=== PATIENT | female | born 1980 | race Caucasian/White ===

== ENCOUNTER 2020-10-27 08:57 | Outpatient (CLI) | payer MEDICAID ==
[~2020-10-27] VITALS: Ht 165.1 cm; Wt 98.1 kg
== END 2020-10-27 09:25 | disposition home or self-care (01) ==
LOC: LDOP 08:57
PROVIDERS: ATTEND Obstetrics & Gynecology
DX: O09.523 Supervision of elderly multigravida, third trimester (principal); Z3A.37 37 weeks gestation of pregnancy
CPT/HCPCS: 59025

== ENCOUNTER 2020-11-08 11:08 | Outpatient (CLI) | payer MEDICAID ==
[~2020-11-08] VITALS: Ht 165.1 cm; Wt 98.0 kg
== END 2020-11-08 12:38 | disposition home or self-care (01) ==
LOC: LDOP 11:08
PROVIDERS: ATTEND Obstetrics & Gynecology
DX: O09.93 Supervision of high risk pregnancy, unspecified, third trimester (principal); Z3A.39 39 weeks gestation of pregnancy
CPT/HCPCS: 59025; 76819

== ENCOUNTER 2020-11-10 05:33 | Inpatient (IN) | payer MEDICAID ==
[~2020-11-10] VITALS: Ht 165.1 cm; Wt 98.2 kg
[2020-11-10] MEDS ORDERED: NEWBORN KIT ONE (05:42)
[2020-11-10] MEDS ORDERED: SODIUM CITRATE/CITRIC ACID 15 ML UDC ONE (05:42)
[2020-11-10] MEDS ORDERED: METOCLOPRAMIDE 5 MG/ML, 2ML ONE (05:42)
[2020-11-10 05:54] VITALS: BP 123/87
[2020-11-10] MEDS ORDERED: ONDANSETRON 2MG/ML, 2ML IVPush ONE (06:00)
[2020-11-10] MEDS ORDERED: LACTATED RINGERS 1,000 ML IVBOLUS ONE (06:00)
[2020-11-10] MEDS ORDERED: CEFAZOLIN PMX 1GM/50ML 50 ML IVPB ONE (06:00)
[2020-11-10] MEDS ORDERED: METOCLOPRAMIDE 5 MG/ML, 2ML IV ONE (06:00)
[2020-11-10] MEDS ORDERED: SODIUM CITRATE/CITRIC ACID 30 ML UDC PO ONE (06:00)
[2020-11-10 06:24] LABS: BASOPHILS % (AUTO) 0 % (0-1); EOSINOPHILS % (AUTO) 1 % (1-7); LYMPHOCYTES % (AUTO) 19 % (22-44); MEAN CORPUSCULAR HEMOGLOBIN 27.8 pg (27.0-34.8); MEAN PLATELET VOLUME 10.4 fL (7.4-10.4); MONOCYTES % (AUTO) 7 % (2-9); NEUTROPHILS % (AUTO) 73 % (42-75); PLATELET COUNT 221 x10^3/uL (130-400); RED BLOOD COUNT 3.58 x10^6/uL (3.82-5.3); RED CELL DISTRIBUTION WIDTH 15.8 % (9.6-15.2)
[2020-11-10] MEDS: LACTATED RINGERS 1,000 ML IV SCH ×7 (06:30→21:30)
[2020-11-10] MEDS ORDERED: CEFAZOLIN 1,000 MG ONE (07:17)
[2020-11-10] MEDS ORDERED: PHENYLEPHRINE 10 MG/ML ONE (07:17)
[2020-11-10] MEDS ORDERED: DEXAMETHASONE 4 MG/ML, 1ML ONE (07:17)
[2020-11-10] MEDS ORDERED: OXYTOCIN 10 UNITS/ML, 1ML ONE (07:17)
[2020-11-10] MEDS ORDERED: KETOROLAC 30 MG/1 ML ONE (07:17)
[2020-11-10] MEDS ORDERED: EPHEDRINE 50 MG/ML, 1ML ONE (07:17)
[2020-11-10] MEDS ORDERED: ONDANSETRON 2MG/ML, 2ML ONE (07:17)
[2020-11-10] MEDS ORDERED: EPHEDRINE 50 MG/ML, 1ML IVPush PRN (07:30)
[2020-11-10] MEDS ORDERED: ONDANSETRON 2MG/ML, 2ML IVPush PRN (07:30)
[2020-11-10] MEDS ORDERED: MEPERIDINE/PF 25MG/0.5ML IVPush PRN (07:30)
[2020-11-10] MEDS ORDERED: OXYcodone 5 MG/5 ML ORAL.SOL UDC PO PRN (07:30)
[2020-11-10] MEDS ORDERED: METOPROLOL 1 MG/ML, 5ML IV PRN (07:30)
[2020-11-10] MEDS ORDERED: PROMETHAZINE 25 MG/ML, 1ML IV PRN (07:30)
[2020-11-10] MEDS ORDERED: ALBUTEROL SULFATE 2.5 MG/3 ML NPPB PRN (07:30)
[2020-11-10] MEDS ORDERED: FENTANYL PF 100 MCG/2ML IV PRN (07:30)
[2020-11-10] MEDS ORDERED: LABETALOL 5MG/ML, 20ML IV PRN (07:30)
[2020-11-10] MEDS ORDERED: hydrALAzine 20 MG/ML, 1ML IV PRN (07:30)
[2020-11-10] MEDS ORDERED: HYDROcodone/APAP 7.5-325MG/15ML UDC PO PRN (07:30)
[2020-11-10] MEDS ORDERED: MIDAZOLAM 1 MG/ML, 2ML IV PRN (07:30)
[2020-11-10] MEDS ORDERED: HYDROmorphone 2 MG/ML, 1ML IVPush PRN (07:30)
[2020-11-10] MEDS ORDERED: HYDROmorphone 2 MG/ML, 1ML ONE (07:40)
[2020-11-10] MEDS ORDERED: FENTANYL PF 100 MCG/2ML ONE (07:40)
[2020-11-10] MEDS ORDERED: MIDAZOLAM 1 MG/ML, 2ML ONE (07:40)
[2020-11-10] MEDS ORDERED: OXYTOCIN 30U/ 0.9% NaCL 500ML 500 ML ONE (10:54)
[2020-11-10] MEDS: OXYTOCIN 30U/ 0.9% NaCL 500ML 500 ML IV SCH ×2 (11:30→21:30)
[2020-11-10] MEDS ORDERED: MISOPROSTOL 200 MCG TABLET PR PRN (11:30)
[2020-11-10] MEDS: morphine SULFATE 10 MG/ML, 1ML IVPush PRN ×2 (12:15→13:05)
[2020-11-10 13:45] VITALS: BP 130/88
[2020-11-10] MEDS: KETOROLAC 30 MG/1 ML IV SCH ×2 (14:57→21:09)
[2020-11-10] MEDS: OXYcodone/APAP 5/325MG TABLET PO PRN ×2 (16:41→21:10)
[2020-11-10 17:30] VITALS: BP 132/78
[2020-11-10 19:30] VITALS: BP 135/78
[2020-11-10] MEDS: DOCUSATE 100 MG CAPSULE PO PRN (21:09)
[2020-11-10 23:50] VITALS: BP 119/74
[2020-11-11 01:08] LABS: BASOPHILS % (AUTO) 0 % (0-1); EOSINOPHILS % (AUTO) 0 % (1-7); LYMPHOCYTES % (AUTO) 12 % (22-44); MEAN CORPUSCULAR HEMOGLOBIN 27.4 pg (27.0-34.8); MEAN CORPUSCULAR HGB CONC 33.4 g/dL (32.4-35.8); MEAN PLATELET VOLUME 10.7 fL (7.4-10.4); MONOCYTES % (AUTO) 6 % (2-9); NEUTROPHILS % (AUTO) 82 % (42-75); PLATELET COUNT 234 x10^3/uL (130-400); RED BLOOD COUNT 3.18 x10^6/uL (3.82-5.3); RED CELL DISTRIBUTION WIDTH 15.9 % (9.6-15.2)
[2020-11-11] MEDS: OXYcodone/APAP 5/325MG TABLET PO PRN ×5 (02:09→21:01)
[2020-11-11] MEDS: KETOROLAC 30 MG/1 ML IV SCH ×4 (03:04→21:01)
[2020-11-11] MEDS: LACTATED RINGERS 1,000 ML IV SCH ×8 (03:30→22:00)
[2020-11-11 04:00] VITALS: BP 123/73
[2020-11-11] MEDS: OXYTOCIN 30U/ 0.9% NaCL 500ML 500 ML IV SCH ×2 (07:30→17:30)
[2020-11-11 07:41] VITALS: BP 107/70
[2020-11-11] MEDS: SIMETHICONE 80 MG CHEW TAB PO PRN ×2 (07:47→16:30)
[2020-11-11] MEDS: DOCUSATE 100 MG CAPSULE PO PRN ×2 (07:47→21:01)
[2020-11-11] MEDS: PRENATAL VIT/IRON/FA 1 EACH TABLET PO SCH (07:47)
[2020-11-11 21:00] VITALS: BP 142/82
[2020-11-11 22:00] VITALS: BP 129/80
[2020-11-12] MEDS: OXYcodone/APAP 5/325MG TABLET PO PRN ×4 (01:23→17:06)
[2020-11-12] MEDS: KETOROLAC 30 MG/1 ML IV SCH ×2 (03:00→09:48)
[2020-11-12] MEDS: OXYTOCIN 30U/ 0.9% NaCL 500ML 500 ML IV SCH (03:30)
[2020-11-12] MEDS: LACTATED RINGERS 1,000 ML IV SCH ×3 (03:30→06:00)
[2020-11-12 08:00] VITALS: BP 120/72
[2020-11-12] MEDS: PRENATAL VIT/IRON/FA 1 EACH TABLET PO SCH (08:05)
[2020-11-12] MEDS: DOCUSATE 100 MG CAPSULE PO PRN (08:05)
[2020-11-12] MEDS ORDERED: IBUPROFEN 600 MG TABLET PO PRN (11:30)
[2020-11-12] MEDS ORDERED: OXYC1TAB14 PO (12:43)
[2020-11-12] MEDS ORDERED: IBUP-1222 PO (12:49)
== END 2020-11-12 17:20 | disposition home or self-care (01) | DRG 787 ==
LOC: LDIP 05:33 → 2NE 11:39 → 2NW 13:54
PROVIDERS: ADMIT Obstetrics & Gynecology; ATTEND Obstetrics & Gynecology
PROC: 10D00Z1 Extraction of Products of Conception, Low, Open Approach (ICD-10-PCS; principal; 2020-11-10)
DX: O99.344 Other mental disorders complicating childbirth (principal); T81.30XA Disruption of wound, unspecified, initial encounter; F41.9 Anxiety disorder, unspecified; O34.211 Maternal care for low transverse scar from previous cesarean delivery; O75.89 Other specified complications of labor and delivery; Z37.0 Single live birth; Z3A.39 39 weeks gestation of pregnancy; Z82.49 Family history of ischemic heart disease and other diseases of the circulatory system; Z83.3 Family history of diabetes mellitus
CPT/HCPCS: 36415; 85025; 86592; 86850; 86900; G0378; J0690; J1100; J1170; J1885; J2250; J2405; J3010; J2270; J2370; J2590; J2765; J7120